=== PATIENT | male | born 1940 | race Caucasian/White ===

== ENCOUNTER 2016-09-07 17:03 | Inpatient (IN) ==
[2016-09-07] MEDS ORDERED: SODIUM CHLORIDE 0.9% 500 ML IV STA (18:15)
[2016-09-07 18:23] LABS: Basophils % 0.3 % (0.0-0.8); Eosinophils # 0.1 10*3/uL (0.0-0.87); Eosinophils % 0.9 % (0.00-10.9); Hematocrit 34.6 VOL% (42.0-52.0); Hemoglobin 10.7 GM/DL (14.0-18.0); Immature Granulocytes % 0.5 %; Immature Granulocytes Absolute 0.05 #; Lymphocytes % 9.6 % (21.2-54.2); Mean Corpuscular HGB Conc 30.9 GM/DL (32-36); Mean Corpuscular Hemoglobin 28 PG (27-34); Mean Corpuscular Volume 90.8 FL (87-102); Mean Platelet Volume 10.9 FL (9.6-12.0); Monocytes # 0.4 10*3/uL (0.11-0.8); Monocytes % 3.4 % (1.7-12.7); Neutrophils # 8.7 10*3/uL (1.4-7.4); Neutrophils % 85.3 % (38.7-73.9); Platelet Count 243 T/CUMM (130-400); Red Blood Count 3.81 MC/CUMM (3.8-5.5); Red Cell Distribution Width 15.2 % (9.3-17.3); White Blood Count 10.2 T/CUMM (4-12)
--- NOTE | 2016-09-07 18:46 | CT Report ---
CT head/brain wo con INDICATION: Altered mental status/confusion The total DLP is 970 mGy*cm. COMPARISON: Noncontrast CT head dated 08/30/2016 Technique: Serial axial tomographic images of the brain were obtained without the use of intravenous contrast. Dose reduction: This CT exam was performed using one or more of the following dose reduction techniques: Automated exposure control, automated adjustment of the mA and/or KV according to patient size, or use of iterative reconstruction technique. Findings: Mild generalized atrophy is noted with mild prominence of the sulci and cortical volume loss. Periventricular white matter hypodensity changes are noted bilaterally which do not demonstrate mass effect and are nonspecific but favored to represent sequela of chronic microvascular ischemia. There is no evidence of vascular territory infarct or acute intracranial hemorrhage. The ruth-white matter differentiation is generally maintained. There is no hydrocephalus. The basilar cisterns are patent. The visualized paranasal sinuses, mastoid air cells and middle ear cavities are predominantly clear. The included orbits and their contents appear within normal limits. The visualized osseous structures and overlying soft tissues of the skull and face demonstrate no acute abnormality. IMPRESSION: No acute intracranial abnormality. Similar mild generalized atrophy and sequela of chronic microvascular ischemia PROCEDURE INTERPRETED AT [facility] DEPARTMENT OF RADIOLOGY Final Report Signed by: Ender Kam
[2016-09-07 18:49] LABS: Alanine Aminotransferase 16 U/L (16-61); Albumin 3.4 G/DL (3.4-5.0); Alkaline Phosphatase 70 U/L (45-117); Aspartate Amino Transferase 28 U/L (0-37); Bilirubin,Total < 0.39 MG/DL (0.2-1.0); Blood Urea Nitrogen 93 MG/DL (7-18); Magnesium 2.5 MG/DL (1.8-2.4); Osmolality,Calculated 288.5 MOS/KG (273-304); Sodium 132 MMOL/L (136-145); Total Protein 7.6 G/DL (6.4-8.3); Troponin I Only < 0.015 NG/ML (0.00-0.045)
[2016-09-07 18:53] LABS: Ammonia 19 UMOL/L (11-32)
[2016-09-07 18:57] LABS: Glucose 34 MG/DL (74-106)
[2016-09-07 18:58] LABS: Potassium 7.4 MMOL/L (3.5-5.1)
[2016-09-07] MEDS ORDERED: DEXTROSE 50% 25 GM/50 ML VIAL IV ONE (19:01)
[2016-09-07] MEDS ORDERED: DEXTROSE 50% 25 GM/50 ML VIAL IV STA (19:01)
[2016-09-07] MEDS ORDERED: CALCIUM CHLORIDE 1,000 MG/10 ML SYRINGE IV STA (19:01)
[2016-09-07] MEDS ORDERED: SODIUM POLYSTYRENE SULFATE 15 GM/60 ML BOTTLE PO STA (19:01)
[2016-09-07] MEDS ORDERED: SODIUM POLYSTYRENE SULFATE 15 GM/60 ML BOTTLE ONE ×2 (19:02→19:03)
[2016-09-07] MEDS ORDERED: CALCIUM CHLORIDE 1,000 MG/10 ML SYRINGE IV ONE (19:02)
[2016-09-07] MEDS ORDERED: SODIUM CHLORIDE 0.9% 1,000 ML IV STA (19:02)
--- NOTE | 2016-09-07 19:04 | XRay Report ---
Exam: XR chest 1V portable Indication: Mental status changes, confusion Comparison study: 08/21/2016 Findings: Cardiomegaly with mild enlarged, similar to prior. The heart, mediastinum and bony structures are stable from prior. Minimal peribronchial thickening is noted within the hilar regions. Minimal density within the left lung base is unchanged from prior. There is similar punctate metallic density within the right mid chest. There is no pneumothorax. Impression: Similar cardiomegaly with probable left basilar atelectasis/trace pleural effusion and mild bronchitis. No definite focal consolidation. PROCEDURE INTERPRETED AT [facility] DEPARTMENT OF RADIOLOGY Final Report Signed by: Ender Kam
--- NOTE | 2016-09-07 19:10 | Emergency Department Note ---
Adrian Heck Manpreet, am scribing for, and in the presence of, Nicolas Calderon MD 18:20. Kvng Heck Charles R, MD, personally performed the services described in this documentation, ascribed by Nilson Campbell in my presence, and it is both accurate and complete 910 . Arrival - Arrival Chief Complaint: Altered Mental Status Stated Complaint: AMS, LOW BLOOD SUGAR ED Nursing Triage Note: PT SENT FROM [facility] IN [place] FOR EVALUATION OF TREMORS AND AMS. ON EMS ARRIVAL GLUCOSE FOUND TO BE 27 MG/DL. 1 AMP D50 GIVEN AND GLUCOSE INCREASED TO 106 MG/DL. PT'S TREMORS STOPPED AND PT IS AT BASELINE MENTAL STATUS, WHICH IS MENTALLY DELAYED. LABS DRAWN TODAY AT THE INTERMEDIATE. Mode of Arrival: Stretcher Source: Patient, Old Records Reviewed Time Seen by Provider: 09/07/16 18:04 - History of Present Illness HPI Narrative: Pt is a 75 y/o male, with PMHx of HTN, IDDM, dyslipidemia, GERD, and dementia, who was sent from [facility] in [place] for evaluation for hypokalemia and AMS. While en route to ED, EMS reported Pts blood sugar to be 27 mg/DL and which was increased with D50 and glucose. Pt does not know his current location, and c /o of vomiting and CP. Pt states he is hungry but does not have Abd pain. No other pains/complaints reported to ED. Onset (ago): hour(s) Consistency: constant Severity: moderate Severity scale (1-10): 4 Allergies/Adverse Reactions: Allergies Allergy/AdvReac Type Severity Reaction Status Date / Time No Known Allergies Allergy Verified 09/07/16 17:30 Home Medications: Home Medications Medication Instructions Recorded Confirmed Type Acetaminophen [Non-Aspirin Extra 1,000 mg PO Q8H PRN 08/16/16 09/07/16 History Strength] Albuterol Neb [Proventil Neb] 2.5 mg RESP TX Q6HR PRN 08/16/16 09/07/16 History Alum/Mag/Simeth Liquid [Mylanta 30 ml PO Q4H PRN 08/16/16 09/07/16 History Liquid] Aspirin EC Tab 81 mg PO 0800 08/16/16 09/07/16 History Gabapentin Cap/Tab [Neurontin 100 mg PO DAILY 08/16/16 09/07/16 History Cap/Tab] Gabapentin Cap/Tab [Neurontin 200 mg PO BEDTIME 08/16/16 09/07/16 History Cap/Tab] Insulin Detemir [Levemir] 20 unit SUBCUT BEDTIME 08/16/16 09/07/16 History Levothyroxine Tab [Synthroid Tab] 50 mcg PO DAILY@0800 08/16/16 09/07/16 History Magnesium Hydroxide Susp [Milk of 30 ml PO DAILY PRN 08/16/16 09/07/16 History Magnesia] Metformin HCl 1,000 mg PO QPM 08/16/16 09/07/16 History Mirtazapine 15 mg PO SUMOTUWETHFR 08/16/16 09/07/16 History Multivitamin with Folic Acid [One 400 mcg PO 0800 08/16/16 09/07/16 History Daily Essential Tablet] Ranitidine Tab [Zantac Tab] 150 mg PO BID 08/16/16 09/07/16 History glipiZIDE [Glipizide] 10 mg PO 0600 08/16/16 09/07/16 History metFORMIN [Glucophage] 1,500 mg PO QAM 08/16/16 09/07/16 History Diltiazem Cd Cap [Cardizem CD] 180 mg PO BID #60 capsule 08/24/16 09/07/16 Rx Ascorbic Acid [Vitamin C Chew Tab] 500 mg PO 0800 09/07/16 09/07/16 History Zinc Sulfate 220 mg PO 0800 09/07/16 09/07/16 History dimenhyDRINATE INJ 50 mg IJ Q4H PRN 09/07/16 09/07/16 History dimenhyDRINATE TAB [Dramamine] 50 mg PO Q4-6H PRN 09/07/16 09/07/16 History Review of System - Review of System 12 point system: reviewed and no additional remarkable complaints except as stated - Review of System Constitutional: Absent: chills, diaphoresis, fever Respiratory: Absent: cough, respiratory distress Gastrointestinal: Present: nausea, vomiting. Absent: abdominal pain, diarrhea Musculoskeletal: Absent: arm pain, back pain, lower back pain, neck pain Neurological: Absent: headache Medical,Surgical,& Family Hx - Medical History Cardio: History of: Cardiac Dysrhythmia (AFIB), Hypertension Neurology: History of: Dementia No history of: Seizures Endocrine: History of: Diabetes Mellitus (IDDM), Dyslipidemia Gastrointestinal: History of: GERD - Surgical History Orthopedic Surgeries: Surgical HX of;: Orthopedic Surgery - Social History Smoking Status: Never smoker Frequency of Alcohol Use: None Type of Drug Use: None Exam Vital Signs: Vital Signs Temperature 96.0 F L 09/07/16 17:03 Pulse Rate 66 09/07/16 17:03 Respiratory Rate 16 09/07/16 17:03 Blood Pressure 104/47 09/07/16 17:03 O2 Sat by Pulse Oximetry 92 L 09/07/16 17:03 - General General appearance: alert - Head Head exam: Present: atraumatic, normocephalic - Eye Eye exam: Present: normal appearance, PERRL, EOMI - ENT ENT exam: Present: mucous membranes dry, TM's normal bilaterally - Neck Neck exam: Present: normal inspection, full ROM, trachea midline. Absent: tenderness - Chest Chest inspection: Present: normal inspection, symmetric chest wall rise - Respiratory Respiratory exam: Present: normal lung sounds bilaterally. Absent: respiratory distress - Cardiovascular Cardiovascular exam: Present: regular rate, normal rhythm, normal heart sounds. Absent: murmur, rubs, gallop - Abdominal Exam Abdominal exam: Present: soft, distention. Absent: tenderness - Extremities Exam Extremities exam: Present: normal inspection, other (+1 Pitting edema) - Back Exam Back exam: Present: normal inspection, full ROM. Absent: tenderness - Neurological Exam Neurological exam: Present: alert, CN II-XII intact. Absent: oriented X3, normal gait - Psychiatric Psychiatric exam: Present: normal affect, normal mood - Skin Skin exam: Present: warm, dry, intact, normal color. Absent: pallor Course - Consultations Consultation #1: Hospitalist will admit patient Time: 19:09 Results - Labs CBC & BMP: 09/07/16 17:57 09/07/16 17:57 Lab Results: I have reviewed the patients labs Labs: Laboratory Tests 09/07/16 17:57 WBC 10.2 RBC 3.81 Hgb 10.7 L Hct 34.6 L MCV 90.8 MCHC 30.9 L RDW 15.2 Neut % (Auto) 85.3 H Lymph % (Auto) 9.6 L Neut # (Auto) 8.7 H Lymph # (Auto) 1.0 L Critical Care Time Critical Care Time: Yes Total Critical Care Time: 60 Disposition Clinical Impression: Altered mental status, Hypoglycemia, Hyperkalemia, Acute renal failure, Dehydration, Debility Case discussed with: patient Disposition: Still a Patient Condition: Guarded Time of Disposition: 19:09
[2016-09-07] MEDS ORDERED: ONDANSETRON 4 MG/2 ML VIAL IV STA (19:16)
[2016-09-07] MEDS ORDERED: ONDANSETRON 4 MG/2 ML VIAL ONE (19:17)
--- NOTE | 2016-09-07 19:38 | EKG Report ---
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
[2016-09-07 19:47] LABS: Apearance,Urine CLEAR (Clear); Bilirubin,Urine Negative (Negative); Blood, Urine Negative (Negative); Glucose,Urine (UA) Negative (Negative); Ketones,Urine Negative (Negative); Nitrite,Urine Negative (Negative); Protein,Urine Negative; Urine Color Yellow (Yellow); Urine Specific Gravity 1.012 (1.001-1.035); Urine Urobilinogen < 2.0 EU/DL (0.2-1.0)
--- NOTE | 2016-09-07 20:05 | Hospitalist History & Physical ---
Assessment and Plan (1) Acute renal failure Status: Acute Assessment and plan: The patient is admitted hospital with profound worsening of chronic kidney disease stage III caused by acute renal failure due to dehydration. The patient will be rehydrated with crystalloid fluid and will recheck kidney function tomorrow morning. The patient has hyperkalemia due to the acute renal failure and has been given a dose of Kayexalate. Will recheck potassium tomorrow. We will hold the patient's antidiabetic medications for now and restart as required once the glucose stabilizes. The patient will have D5 normal saline throughout the night. Current Visit: Yes Qualifiers: Acute renal failure type: with acute tubular necrosis Qualified Code(s): N17.0 - Acute kidney failure with tubular necrosis (2) Altered mental status Status: Acute Current Visit: Yes (3) Hypoglycemia Status: Acute Current Visit: Yes (4) Hyperkalemia Status: Acute Current Visit: Yes (5) Dehydration Status: Acute Current Visit: Yes History of Present Illness Chief complaint: Altered mental status History of present illness: Mr. Aragon is a 75 year old male with history of diabetes mellitus type 2, peripheral vascular disease with arterial insufficiency of the lower extremities. The patient has baseline chronic kidney disease stage III with creatinine 1.6. The patient was noticed to be lethargic at the custodial and was sent to [facility] for further evaluation. The patient is profoundly hypoglycemic and takes long-acting insulin as well as oral antidiabetic medications. The patient states that he has had some diarrhea nausea and vomiting. Serum creatinine is now 6.4 and the patient appears to be dehydrated. The patient's altered mental status improved with dextrose infusion. The patient's altered mental status was moderate to severe, continuous, and improving with dextrose. The patient is now admitted to the hospital for therapy of renal failure and hypoglycemia. Home Medications Medication Instructions Recorded Confirmed Type Acetaminophen [Non-Aspirin Extra 1,000 mg PO Q8H PRN 08/16/16 09/07/16 History Strength] Albuterol Neb [Proventil Neb] 2.5 mg RESP TX Q6HR PRN 08/16/16 09/07/16 History Alum/Mag/Simeth Liquid [Mylanta 30 ml PO Q4H PRN 08/16/16 09/07/16 History Liquid] Aspirin EC Tab 81 mg PO 0800 08/16/16 09/07/16 History Gabapentin Cap/Tab [Neurontin 100 mg PO DAILY 08/16/16 09/07/16 History Cap/Tab] Gabapentin Cap/Tab [Neurontin 200 mg PO BEDTIME 08/16/16 09/07/16 History Cap/Tab] Insulin Detemir [Levemir] 20 unit SUBCUT BEDTIME 08/16/16 09/07/16 History Levothyroxine Tab [Synthroid Tab] 50 mcg PO DAILY@0800 08/16/16 09/07/16 History Magnesium Hydroxide Susp [Milk of 30 ml PO DAILY PRN 08/16/16 09/07/16 History Magnesia] Metformin HCl 1,000 mg PO QPM 08/16/16 09/07/16 History Mirtazapine 15 mg PO SUMOTUWETHFR 08/16/16 09/07/16 History Multivitamin with Folic Acid [One 400 mcg PO 0800 08/16/16 09/07/16 History Daily Essential Tablet] Ranitidine Tab [Zantac Tab] 150 mg PO BID 08/16/16 09/07/16 History glipiZIDE [Glipizide] 10 mg PO 0600 08/16/16 09/07/16 History metFORMIN [Glucophage] 1,500 mg PO QAM 08/16/16 09/07/16 History Diltiazem Cd Cap [Cardizem CD] 180 mg PO BID #60 capsule 08/24/16 09/07/16 Rx Ascorbic Acid [Vitamin C Chew Tab] 500 mg PO 0800 09/07/16 09/07/16 History Zinc Sulfate 220 mg PO 0800 09/07/16 09/07/16 History dimenhyDRINATE INJ 50 mg IJ Q4H PRN 09/07/16 09/07/16 History dimenhyDRINATE TAB [Dramamine] 50 mg PO Q4-6H PRN 09/07/16 09/07/16 History Allergies Allergy/AdvReac Type Severity Reaction Status Date / Time No Known Allergies Allergy Verified 09/07/16 17:30 Medical,Surgical,& Family Hx - Medical History Cardio: History of: Cardiac Dysrhythmia (AFIB), Hypertension Neurology: History of: Dementia No history of: Seizures Endocrine: History of: Diabetes Mellitus (IDDM), Dyslipidemia Gastrointestinal: History of: GERD - Surgical History Orthopedic Surgeries: Surgical HX of;: Orthopedic Surgery - Family History Family History: Reports;: Family Hypertension - Social History Smoking Status: Never smoker Frequency of Alcohol Use: None Type of Drug Use: None Marital Status: Single Lives With:: half-way Functional capacity: wheelchair bound 12 point system: reviewed and no additional remarkable complaints except as stated Exam - Constitutional Exam: Constitutional System: Minimal distress. No tremulousness. Mild diaphoresis which is improved with dextrose Head: Normocephalic, atraumatic. Ears, Nose and Throat System: No evidence of Otitis or Mastoiditis. No epistaxis or discharge Eyes System: Pupils equal, round, and reactive. Extraocular muscles intact. Neck: Supple, without adenopathy, No jugular venous distention. No thyromegaly , neck mass, or prior surgery apparent. Respiratory System: Chest clear to auscultation. Cardiovascular System: Heart with regular rate and rhythm. No murmur. GI System: Abdomen soft, minimal tenderness right lower quadrant. Normo active bowel sounds present. Musculoskeletal System: limbs with no pedal edema. Reduced distal pulses and bilateral feet are bandaged. The patient has had recent bilateral great toe amputations Neurological System: No discernable sensory deficit. No aphasia Psychiatric System: Conversation consistent with moderate dementia. Results - Labs CBC & BMP: 09/07/16 17:57 09/07/16 17:57 Lab Results: I have reviewed the past 24 hour labs
[2016-09-07] MEDS ORDERED: GLUCAGON 1 MG VIAL IM PRN (20:40)
[2016-09-07] MEDS ORDERED: ONDANSETRON 4 MG/2 ML VIAL IV PRN (20:40)
[2016-09-07] MEDS: DEXTROSE 5% NACL 0.9% 1,000 ML IV SCH (21:06)
[2016-09-07] MEDS: INSULIN LISPRO 100 UNIT/ML SUBCUT SCH ×2 (21:12→23:01)
--- NOTE | 2016-09-07 21:21 | XRay Report ---
XR abdomen 2V Clinical Information: Abdominal Pain nausea, vomiting Comparison: None Findings: Bowel gas pattern is nonspecific and within normal limits. No abnormally dilated small bowel loops are identified to suggest obstruction. There is no free air identified. Scattered fecal material is noted throughout colon, which is otherwise nondilated. No abnormal focal soft tissue masses or calcific densities are identified in the abdomen or pelvis. Lung bases appear predominantly clear. There is no acute osseous abnormality. No suspicious osseous lesions are identified. Impression: No acute radiographic abnormality in the abdomen. A mild-moderate degree of fecal stasis/constipation is suspected. PROCEDURE INTERPRETED AT [facility] DEPARTMENT OF RADIOLOGY Final Report Signed by: Ender Kam
[2016-09-07] MEDS: DEXTROSE 50% 25 GM/50 ML VIAL IV PRN (22:48)
[2016-09-08] MEDS: INSULIN LISPRO 100 UNIT/ML SUBCUT SCH ×12 (01:07→22:35)
[2016-09-08] MEDS: DEXTROSE 50% 25 GM/50 ML VIAL IV PRN ×3 (02:23→06:29)
[2016-09-08] MEDS: DEXTROSE 5% NACL 0.9% 1,000 ML IV SCH (04:24)
[2016-09-08 06:43] LABS: Basophils % 0.2 % (0.0-0.8); Eosinophils # 0.2 10*3/uL (0.0-0.87); Eosinophils % 2.2 % (0.00-10.9); Hematocrit 32.8 VOL% (42.0-52.0); Hemoglobin 10.2 GM/DL (14.0-18.0); Immature Granulocytes % 0.4 %; Immature Granulocytes Absolute 0.04 #; Lymphocytes % 10.7 % (21.2-54.2); Mean Corpuscular HGB Conc 31.1 GM/DL (32-36); Mean Corpuscular Hemoglobin 28 PG (27-34); Mean Corpuscular Volume 88.9 FL (87-102); Mean Platelet Volume 11.1 FL (9.6-12.0); Monocytes # 0.5 10*3/uL (0.11-0.8); Monocytes % 5.4 % (1.7-12.7); Neutrophils # 7.7 10*3/uL (1.4-7.4); Neutrophils % 81.1 % (38.7-73.9); Platelet Count 209 T/CUMM (130-400); Red Blood Count 3.69 MC/CUMM (3.8-5.5); Red Cell Distribution Width 15.2 % (9.3-17.3); White Blood Count 9.5 T/CUMM (4-12)
--- NOTE | 2016-09-08 07:11 | EKG Report ---
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
[2016-09-08 07:20] LABS: Blood Urea Nitrogen 90 MG/DL (7-18); Magnesium 2.4 MG/DL (1.8-2.4); Osmolality,Calculated 304.3 MOS/KG (273-304); Sodium 141 MMOL/L (136-145); Troponin I Only < 0.015 NG/ML (0.00-0.045)
[2016-09-08 07:24] LABS: Glucose 33 MG/DL (74-106); Potassium 6.6 MMOL/L (3.5-5.1)
[2016-09-08] MEDS ORDERED: SODIUM CHLORIDE 0.9% 1,000 ML IV SCH (08:00)
--- NOTE | 2016-09-08 08:36 | Ultrasound Report ---
Renal ultrasound Indication: Renal failure Comparison: None available Findings: Kidneys are normal in size. There is simple appearing cyst in the left kidney that measures 2.0 x 1.4 x 1.3 cm. No hydronephrosis or nephrolithiasis is seen. The right renal length is 10.6 cm. The left renal length is 10.9 cm. No free fluid or other abnormality is seen. Impression: Simple appearing left renal cyst. No other evidence of abnormality demonstrated. Ultrasound images stored and captured. PROCEDURE INTERPRETED AT [facility] DEPARTMENT OF RADIOLOGY Final Report Signed by: Dr. Drew Esparza
[2016-09-08] MEDS ORDERED: SODIUM POLYSTYRENE SULFATE 15 GM/60 ML BOTTLE PO STA (09:27)
--- NOTE | 2016-09-08 09:49 | Hospitalist Progress Note ---
Assessment and Plan (1) Atrial fibrillation with rapid ventricular response Status: Acute Current Visit: No (2) Diabetes Status: Acute Current Visit: No (3) Hypoglycemia Status: Acute Current Visit: Yes (4) Hyperkalemia Status: Acute Current Visit: Yes (5) Acute renal failure Status: Acute Current Visit: Yes Qualifiers: Acute renal failure type: with acute tubular necrosis Qualified Code(s): N17.0 - Acute kidney failure with tubular necrosis (6) Dehydration Status: Acute Current Visit: Yes Hospitalist: Subjective Interval history: No acute events overnight. Patient reports that he is doing well, denies pain. He is only oriented to person. Creatinine is slightly better today as is his potassium. But still elevated. Nephrology has been consulted. Of note he was discharged on bactrim last month. FSGs remain low, started on D10 this am. Will continue to monitor. Exam - Constitutional Vitals: Period Temp Pulse Resp BP Sys/Anthony Pulse Ox Last 24 Hr 97.5 F-98.1 F 82-112 18-18 114-141/54-81 93-95 General appearance: normal weight - Head Head exam: Present: normocephalic, atraumatic - Eye Eye exam: Present: EOMI Pupils: Present: SELVIN - ENT ENT exam: Present: normal exam - Neck Neck exam: Present: normal inspection - Respiratory Respiratory exam: Present: clear to auscultation bilaterally. Absent: rhonchi, wheezes - Cardiovascular Cardiovascular exam: Present: regular rate and rhythm - GI/Abdominal GI/Abdominal exam: Present: normal bowel sounds, soft. Absent: tenderness, rebound - Extremities Exam Extremities exam: Present: normal inspection - Back Exam Back exam: Present: normal inspection - Neurological Exam Neurological exam: Present: alert, altered - Psychiatric Psychiatric exam: Present: normal affect, normal mood - Skin Skin exam: Present: warm, intact Results - Labs CBC & BMP: 09/08/16 05:44 09/08/16 05:44 Quality Measures - VTE Contraindication to Pharmacological VTE Prophylaxis: High Risk of Bleeding
[2016-09-08] MEDS: DEXTROSE 10% 1,000 ML IV SCH ×2 (10:21→17:29)
[2016-09-08] MEDS: DILTIAZEM CD 180 MG CAPSULE PO SCH ×2 (10:37→20:36)
[2016-09-08] MEDS: MIRTAZAPINE 15 MG TABLET PO SCH (10:37)
[2016-09-08] MEDS: ASPIRIN EC 81 MG TABLET PO SCH (10:38)
[2016-09-08] MEDS: LEVOTHYROXINE 50 MCG TABLET PO SCH (10:38)
[2016-09-08] MEDS: DEXAMETHASONE 4 MG/1 ML VIAL IV SCH ×3 (10:41→23:50)
[2016-09-08] MEDS ORDERED: ALBUTEROL/IPRATROPIUM 3 ML NEB RESP TX ONE (12:50)
[2016-09-08] MEDS ORDERED: CALCIUM GLUCONATE 1,000 MG in SODIUM CHLORIDE 0.9% 100 ML IV ONE (12:52)
--- NOTE | 2016-09-08 23:33 | Nephrology Consult Note ---
History of Present Illness Chief complaint: ARF History of present illness: Mr. Aragon is a 75 year old male admitted with decreased LOC. He was noted to be significantly hypoglycemic on admission. Chronic renal insufficiency was noted to be significantly worse. He was hyperkalemic on admission. He was recently hospitalized for peripheral vascular disease. At the time of discharge his creatinine was 1.6. He was discharged on Bactrim. He states he has had nausea and vomiting prior to admission Home Medications Medication Instructions Recorded Confirmed Type Acetaminophen [Non-Aspirin Extra 1,000 mg PO Q8H PRN 08/16/16 09/07/16 History Strength] Albuterol Neb [Proventil Neb] 2.5 mg RESP TX Q6HR PRN 08/16/16 09/07/16 History Alum/Mag/Simeth Liquid [Mylanta 30 ml PO Q4H PRN 08/16/16 09/07/16 History Liquid] Aspirin EC Tab 81 mg PO 0800 08/16/16 09/07/16 History Gabapentin Cap/Tab [Neurontin 100 mg PO DAILY 08/16/16 09/07/16 History Cap/Tab] Gabapentin Cap/Tab [Neurontin 200 mg PO BEDTIME 08/16/16 09/07/16 History Cap/Tab] Insulin Detemir [Levemir] 20 unit SUBCUT BEDTIME 08/16/16 09/07/16 History Levothyroxine Tab [Synthroid Tab] 50 mcg PO DAILY@0800 08/16/16 09/07/16 History Magnesium Hydroxide Susp [Milk of 30 ml PO DAILY PRN 08/16/16 09/07/16 History Magnesia] Metformin HCl 1,000 mg PO QPM 08/16/16 09/07/16 History Mirtazapine 15 mg PO SUMOTUWETHFR 08/16/16 09/07/16 History Multivitamin with Folic Acid [One 400 mcg PO 0800 08/16/16 09/07/16 History Daily Essential Tablet] Ranitidine Tab [Zantac Tab] 150 mg PO BID 08/16/16 09/07/16 History glipiZIDE [Glipizide] 10 mg PO 0600 08/16/16 09/07/16 History metFORMIN [Glucophage] 1,500 mg PO QAM 08/16/16 09/07/16 History Diltiazem Cd Cap [Cardizem CD] 180 mg PO BID #60 capsule 08/24/16 09/07/16 Rx Ascorbic Acid [Vitamin C Chew Tab] 500 mg PO 0800 09/07/16 09/07/16 History Sulfameth/Trimeth 800-160 Tab 1 tablet PO DAILY 09/07/16 09/07/16 History [Bactrim DS Tab] Zinc Sulfate 220 mg PO 0800 09/07/16 09/07/16 History dimenhyDRINATE INJ 50 mg IJ Q4H PRN 09/07/16 09/07/16 History dimenhyDRINATE TAB [Dramamine] 50 mg PO Q4-6H PRN 09/07/16 09/07/16 History levoFLOXacin [Levofloxacin] 500 mg PO DAILY 09/07/16 09/07/16 History Allergies Allergy/AdvReac Type Severity Reaction Status Date / Time No Known Allergies Allergy Verified 09/07/16 17:30 Medical,Surgical,& Family Hx - Medical History Cardio: History of: Cardiac Dysrhythmia (AFIB), Hypertension, Valvular Heart Disease Neurology: History of: Dementia No history of: Seizures Endocrine: History of: Diabetes Mellitus (IDDM), Dyslipidemia Gastrointestinal: History of: GERD - Surgical History Orthopedic Surgeries: Surgical HX of;: Orthopedic Surgery - Family History Family History: Reports;: Family Hypertension - Social History Smoking Status: Never smoker Frequency of Alcohol Use: None Type of Drug Use: None Review of Systems 12 point system: reviewed and no additional remarkable complaints except as stated Exam - Vital Signs Vital signs: Period Temp Pulse Resp BP Sys/Anthony Pulse Ox Last 24 Hr 97.5 F-99.0 F 94-114 18-18 94-125/45-81 93-99 Exam: Gen.: Confused ENT: Pupils equal round reactive to light. EOMs intact. Mucous membranes moist. Neck: Supple. No JVD or bruit. Cardiovascular: Regular rate and rhythm. No murmur rub or gallop Lungs: Clear Abdomen: Soft. Nontender. Positive bowel sounds. No organomegaly Extremities: No edema Results - Labs CBC & BMP: 09/08/16 05:44 09/08/16 05:44 Assessment and Plan (1) Chronic kidney disease, stage III (moderate) Status: Acute Assessment and plan: 75 admitted with: * CRF stage III. Baseline creatinine 1.6 * ARF. He was clinically volume depleted on admission. Bactrim likely contributed to renal insufficiency. Agree with IV fluid * Hyperkalemia. Beta agonist has been ordered. Calcium gluconate ordered. * Hypoglycemia. Metformin should not be resumed due to renal insufficiency * Peripheral vascular disease * History of A. fib Current Visit: Yes (2) Acute renal failure Status: Acute Current Visit: Yes Qualifiers: Acute renal failure type: with acute tubular necrosis Qualified Code(s): N17.0 - Acute kidney failure with tubular necrosis (3) Altered mental status Status: Acute Current Visit: Yes (4) Hyperkalemia Status: Acute Current Visit: Yes (5) Hypoglycemia Status: Acute Current Visit: Yes (6) Diabetes Status: Acute Current Visit: No
[2016-09-09] MEDS: INSULIN LISPRO 100 UNIT/ML SUBCUT SCH ×12 (00:51→22:03)
[2016-09-09] MEDS: DEXTROSE 10% 1,000 ML IV SCH (03:11)
[2016-09-09 05:31] LABS: Hematocrit 26.4 VOL% (42.0-52.0); Hemoglobin 8.3 GM/DL (14.0-18.0); Immature Granulocytes % 0.6 %; Immature Granulocytes Absolute 0.04 #; Lymphocytes # 0.4 10*3/uL (1.4-4.0); Lymphocytes % 5.1 % (21.2-54.2); Mean Corpuscular HGB Conc 31.4 GM/DL (32-36); Mean Corpuscular Hemoglobin 28 PG (27-34); Mean Corpuscular Volume 89.8 FL (87-102); Mean Platelet Volume 10.9 FL (9.6-12.0); Monocytes # 0.1 10*3/uL (0.11-0.8); Neutrophils # 6.6 10*3/uL (1.4-7.4); Neutrophils % 93.3 % (38.7-73.9); Platelet Count 155 T/CUMM (130-400); Red Blood Count 2.94 MC/CUMM (3.8-5.5); Red Cell Distribution Width 14.9 % (9.3-17.3); White Blood Count 7.1 T/CUMM (4-12)
[2016-09-09 06:00] LABS: Hypochromasia 1+; Lymphocytes 6 % (20-55); Ovalocytes Slight; Platelet Estimate Normal; Segmented Neutrophils 93 % (50-85); Total Cells Counted 100
[2016-09-09 06:16] LABS: Calcium 8.4 MG/DL (8.5-10.1); Magnesium 2.3 MG/DL (1.8-2.4); Osmolality,Calculated 309.7 MOS/KG (273-304); Potassium 5.9 MMOL/L (3.5-5.1)
[2016-09-09] MEDS ORDERED: DEXTROSE 5% NACL 0.45% 1,000 ML IV SCH (08:30)
--- NOTE | 2016-09-09 08:47 | Nephrology Progress Note ---
Nephrology - PN: Subj Interval history: Mr. Aragon is seen in follow-up of his acute renal impairment. His creatinine continues to slowly improve and his 5.4 today. His potassium is much improved at 5.9. He is cheerful and alert and his chest is clear. Extremities exhibit no edema. We will continue to follow and hopefully is renal function will continue to improve Exam (PN)-Nephrology - Vital Signs Vital signs: Period Temp Pulse Resp BP Sys/Anthony Pulse Ox Last 24 Hr 98.2 F-99.3 F 97-114 18-18 94-110/45-58 95-99 - Lab 09/09/16 05:02 09/09/16 05:02 Most recent lab results Calcium 8.4 MG/DL (8.5-10.1) L 09/09/16 05:02 Magnesium 2.3 MG/DL (1.8-2.4) 09/09/16 05:02
[2016-09-09] MEDS: ASPIRIN EC 81 MG TABLET PO SCH (09:03)
[2016-09-09] MEDS: DEXAMETHASONE 4 MG/1 ML VIAL IV SCH (09:03)
[2016-09-09] MEDS: DILTIAZEM CD 180 MG CAPSULE PO SCH ×2 (09:03→20:17)
[2016-09-09] MEDS: LEVOTHYROXINE 50 MCG TABLET PO SCH (09:03)
--- NOTE | 2016-09-09 09:07 | Hospitalist Progress Note ---
<Carl Diaz - Last Filed: 09/09/16 09:07> Assessment and Plan (1) Chronic kidney disease, stage III (moderate) Status: Acute Assessment and plan: BUN/Creatinine at 94/5.40; noted improvement since admission. Will discontinue Dextrose 10% and change to D5 1/2 NS at same rate. Current Visit: Yes (2) Hyperkalemia Status: Acute Assessment and plan: Potassium 5.9 today down from 6.6 on yesterday; continue IVF as ordered per nephrology recommendations. Current Visit: Yes Hospitalist: Subjective Interval history: Patient seen and evaluated. No significant overninght events. Noted improvement in potassium at 5.9 from 6.6 on yesterday. Creatinine 5.40 from 6.0 on yesterday. Exam - Constitutional Vitals: Period Temp Pulse Resp BP Sys/Anthony Pulse Ox Last 24 Hr 98.2 F-99.3 F 97-114 18-18 94-110/45-58 95-99 General appearance: normal weight, no acute distress - Head Head exam: Present: normal inspection, normocephalic - Eye Eye exam: Present: EOMI, conjunctival injection Pupils: Present: SELVIN, normal accommodation. Absent: constricted - ENT ENT exam: Present: normal exam, normal external ear exam, normal oropharynx - Neck Neck exam: Present: normal inspection. Absent: lymphadenopathy, meningismus, tenderness, thyromegaly - Respiratory Respiratory exam: Present: clear to auscultation bilaterally. Absent: rales, rhonchi, stridor, wheezes - Cardiovascular Cardiovascular exam: Present: regular rate and rhythm. Absent: carotid bruit, diastolic murmur, gallop, JVD, rubs, systolic murmur - GI/Abdominal GI/Abdominal exam: Present: normal bowel sounds, soft. Absent: firm, guarding, tenderness, rebound - Extremities Exam Extremities exam: Present: normal inspection, normal capillary refill, full ROM , edema (trace edema) - Back Exam Back exam: Present: normal inspection - Neurological Exam Neurological exam: Present: alert (pleasantly confused) - Psychiatric Psychiatric exam: Present: normal affect, normal mood - Skin Skin exam: Present: normal color, warm, dry Results - Labs CBC & BMP: 09/09/16 05:02 09/09/16 05:02 Lab Results: I have reviewed the past 24 hour labs Quality Measures - VTE Contraindication to Pharmacological VTE Prophylaxis: High Risk of Bleeding <Eddie Mcconnell - Last Filed: 09/09/16 10:19> Assessment and Plan (1) Atrial fibrillation with rapid ventricular response Status: Acute Current Visit: No (2) Diabetes Status: Acute Current Visit: No (3) Hypoglycemia Status: Acute Current Visit: Yes (4) Hyperkalemia Status: Acute Current Visit: Yes (5) Acute renal failure Status: Acute Current Visit: Yes Qualifiers: Acute renal failure type: with acute tubular necrosis Qualified Code(s): N17.0 - Acute kidney failure with tubular necrosis (6) Dehydration Status: Acute Current Visit: Yes Hospitalist: Subjective Interval history: Patient seen and examined independently of CHANCE Diaz, agree with history, assessment and plan as documented. Nephrology assisting. Creatinine and potassium improving. FSGs are better. Discontinuing D10, starting D5, continue to monitor closely. Exam - Constitutional Vitals: Period Temp Pulse Resp BP Sys/Anthony Pulse Ox Last 24 Hr 97.8 F-99.3 F 96-114 18-20 94-150/45-66 95-99 Results - Labs CBC & BMP: 09/09/16 05:02 09/09/16 05:02
[2016-09-09] MEDS: SODIUM CHLORIDE 0.9% 1,000 ML IV SCH (18:17)
[2016-09-10] MEDS: INSULIN LISPRO 100 UNIT/ML SUBCUT SCH ×11 (00:07→21:49)
[2016-09-10] MEDS: SODIUM CHLORIDE 0.9% 1,000 ML IV SCH ×2 (02:05→13:58)
[2016-09-10 05:30] LABS: Hematocrit 25.5 VOL% (42.0-52.0); Hemoglobin 8.3 GM/DL (14.0-18.0); Immature Granulocytes % 0.7 %; Immature Granulocytes Absolute 0.07 #; Lymphocytes % 9.2 % (21.2-54.2); Mean Corpuscular HGB Conc 32.5 GM/DL (32-36); Mean Corpuscular Hemoglobin 28 PG (27-34); Mean Corpuscular Volume 86.7 FL (87-102); Mean Platelet Volume 11.3 FL (9.6-12.0); Monocytes # 0.7 10*3/uL (0.11-0.8); Monocytes % 6.7 % (1.7-12.7); Neutrophils # 8.7 10*3/uL (1.4-7.4); Neutrophils % 83.4 % (38.7-73.9); Platelet Count 157 T/CUMM (130-400); Red Blood Count 2.94 MC/CUMM (3.8-5.5); Red Cell Distribution Width 14.7 % (9.3-17.3); White Blood Count 10.4 T/CUMM (4-12)
[2016-09-10 05:51] LABS: Alanine Aminotransferase 18 U/L (16-61); Albumin 2.7 G/DL (3.4-5.0); Alkaline Phosphatase 62 U/L (45-117); Aspartate Amino Transferase 19 U/L (0-37); Bilirubin,Total < 0.39 MG/DL (0.2-1.0); Blood Urea Nitrogen 82 MG/DL (7-18); Calcium 8.1 MG/DL (8.5-10.1); Glucose 187 MG/DL (74-106); Magnesium 2.2 MG/DL (1.8-2.4); Osmolality,Calculated 310.3 MOS/KG (273-304); Phosphorous 3.8 MG/DL (2.5-4.9); Potassium 4.9 MMOL/L (3.5-5.1); Sodium 141 MMOL/L (136-145); Total Protein 5.3 G/DL (6.4-8.3)
[2016-09-10] MEDS: ASPIRIN EC 81 MG TABLET PO SCH (08:28)
[2016-09-10] MEDS: LEVOTHYROXINE 50 MCG TABLET PO SCH (08:28)
[2016-09-10] MEDS: MIRTAZAPINE 15 MG TABLET PO SCH (08:28)
[2016-09-10] MEDS: DILTIAZEM CD 180 MG CAPSULE PO SCH ×2 (08:28→19:59)
--- NOTE | 2016-09-10 09:28 | Nephrology Progress Note ---
Nephrology - PN: Subj Interval history: Mr. Aragon is improved. He is breathing without difficulty with does have some end expiratory wheeze. He is drinking fairly well and I think we can slow his IV fluids down to 50 cc an hour. His creatinine is fallen to 4.0. Overall he is improving significantly and is alert and interactive today. Exam (PN)-Nephrology - Vital Signs Vital signs: Period Temp Pulse Resp BP Sys/Anthony Pulse Ox Last 24 Hr 97.9 F-98.8 F 83-112 18-20 93-133/43-69 94-100 - Lab 09/10/16 05:04 09/10/16 05:04 Most recent lab results Calcium 8.1 MG/DL (8.5-10.1) L 09/10/16 05:04 Phosphorus 3.8 MG/DL (2.5-4.9) 09/10/16 05:04 Magnesium 2.2 MG/DL (1.8-2.4) 09/10/16 05:04
--- NOTE | 2016-09-10 10:01 | Hospitalist Progress Note ---
<Carl Diaz - Last Filed: 09/10/16 09:58> Assessment and Plan (1) Chronic kidney disease, stage III (moderate) Status: Acute Assessment and plan: BUN/Creatinine at 94/5.40; noted improvement since admission. Will discontinue Dextrose 10% and change to D5 1/2 NS at same rate. 09/10-IVF discontinued on yesterday due to increase in blood glucose levels; BUN/ Creatinine today at 82/4.0 down from 94/5.40 on yesterday. Current Visit: Yes (2) Hyperkalemia Status: Acute Assessment and plan: Potassium 5.9 today down from 6.6 on yesterday; continue IVF as ordered per nephrology recommendations. 7-Potassium normalized today at 4.9. Will continue to monitor. Current Visit: Yes Hospitalist: Subjective Interval history: Patient seen and examined; no significant overnight events. Potassium normalized to 4.9; BUN at 82; Creatinine at 4.00 down from 94/5.40 on yesterday. Exam - Constitutional Vitals: Period Temp Pulse Resp BP Sys/Anthony Pulse Ox Last 24 Hr 97.9 F-98.8 F 83-112 18-20 93-133/43-69 94-100 General appearance: normal weight, no acute distress - Head Head exam: Present: normal inspection, normocephalic, atraumatic - Eye Eye exam: Present: EOMI. Absent: conjunctival injection, nystagmus Pupils: Present: SELVIN, normal accommodation - ENT ENT exam: Present: normal exam, normal external ear exam, normal oropharynx - Neck Neck exam: Present: normal inspection. Absent: lymphadenopathy, meningismus, tenderness, thyromegaly - Respiratory Respiratory exam: Present: wheezes - Cardiovascular Cardiovascular exam: Present: regular rate and rhythm. Absent: carotid bruit, diastolic murmur, gallop, JVD, rubs, systolic murmur - GI/Abdominal GI/Abdominal exam: Present: normal bowel sounds, soft - Extremities Exam Extremities exam: Present: normal inspection, full ROM, edema (+2 edema to bilateral lower extremeties) - Neurological Exam Neurological exam: Present: alert, altered - Psychiatric Psychiatric exam: Present: normal affect, normal mood - Skin Skin exam: Present: normal color, warm, dry Results - Labs CBC & BMP: 09/10/16 05:04 09/10/16 05:04 Lab Results: I have reviewed the past 24 hour labs Quality Measures - VTE Contraindication to Pharmacological VTE Prophylaxis: High Risk of Bleeding <Eddie Mcconnell - Last Filed: 09/10/16 11:31> Assessment and Plan (1) Atrial fibrillation with rapid ventricular response Status: Acute Current Visit: No (2) Diabetes Status: Acute Current Visit: No (3) Hypoglycemia Status: Acute Current Visit: Yes (4) Hyperkalemia Status: Acute Current Visit: Yes (5) Acute renal failure Status: Acute Current Visit: Yes Qualifiers: Acute renal failure type: with acute tubular necrosis Qualified Code(s): N17.0 - Acute kidney failure with tubular necrosis (6) Dehydration Status: Acute Current Visit: Yes Hospitalist: Subjective Interval history: Patient seen and examined independently of CHANCE Diaz, agree with assessment and plan as documented. Patient pleasant and alert today. Denies any abdominal pain. Creatinine continues to trend down. Potassium is within normal limits today. Nephrology assisting. Glucoses elevated off D5 now, will start low dose Lantus Exam - Constitutional Vitals: Period Temp Pulse Resp BP Sys/Anthony Pulse Ox Last 24 Hr 97.9 F-98.8 F 83-112 18-20 93-133/43-69 94-100 Results - Labs CBC & BMP: 09/10/16 05:04 09/10/16 05:04
[2016-09-10] MEDS: INSULIN GLARGINE 100 UNIT/ML SUBCUT SCH (12:15)
[2016-09-11] MEDS: INSULIN LISPRO 100 UNIT/ML SUBCUT SCH ×13 (00:26→23:29)
[2016-09-11 07:47] LABS: Basophils % 0.2 % (0.0-0.8); Eosinophils # 0.4 10*3/uL (0.0-0.87); Eosinophils % 2.7 % (0.00-10.9); Hematocrit 28.4 VOL% (42.0-52.0); Hemoglobin 9.3 GM/DL (14.0-18.0); Immature Granulocytes % 0.6 %; Immature Granulocytes Absolute 0.08 #; Lymphocytes # 1.2 10*3/uL (1.4-4.0); Lymphocytes % 9.2 % (21.2-54.2); Mean Corpuscular HGB Conc 32.7 GM/DL (32-36); Mean Corpuscular Hemoglobin 28 PG (27-34); Mean Corpuscular Volume 86.9 FL (87-102); Mean Platelet Volume 10.7 FL (9.6-12.0); Monocytes % 7.9 % (1.7-12.7); Neutrophils # 10.4 10*3/uL (1.4-7.4); Neutrophils % 79.4 % (38.7-73.9); Platelet Count 164 T/CUMM (130-400); Red Blood Count 3.27 MC/CUMM (3.8-5.5); Red Cell Distribution Width 14.7 % (9.3-17.3); White Blood Count 13.1 T/CUMM (4-12)
[2016-09-11 08:11] LABS: Calcium 8.6 MG/DL (8.5-10.1); Magnesium 1.9 MG/DL (1.8-2.4); Potassium 4.9 MMOL/L (3.5-5.1)
[2016-09-11] MEDS: DILTIAZEM CD 180 MG CAPSULE PO SCH ×2 (08:53→20:20)
[2016-09-11] MEDS: ASPIRIN EC 81 MG TABLET PO SCH (08:53)
[2016-09-11] MEDS: MIRTAZAPINE 15 MG TABLET PO SCH (08:53)
[2016-09-11] MEDS: LEVOTHYROXINE 50 MCG TABLET PO SCH (08:53)
[2016-09-11] MEDS: INSULIN GLARGINE 100 UNIT/ML SUBCUT SCH (08:54)
--- NOTE | 2016-09-11 09:45 | EKG Report ---
Stationary ECG Study [facility] Test Date: 09/11/2016 9:45:32 AM Pat Name: ANAND AVENDANO Department: Room: 519 Gender: M [employer]: LONG : 1940 Requested by: Eddie Mcconnell Order Number: [id number] Reading MD: GINGER GUTHRIE Intervals [place] Rate: 119 P: 999 MO: 0 QRS: 85 QRSD: 79 T: 51 QT: 247 QTc: 318 Interpretive Statements ATRIAL FIBRILLATION WITH RAPID VENTRICULAR RESPONSE MODERATE ST DEPRESSION Electronically Signed On 09-17-16 22:21:42 CDT by GINGER GUTHRIE [email or web address]
[2016-09-11] MEDS: METOPROLOL TARTRATE 25 MG TABLET PO SCH ×2 (10:37→20:20)
--- NOTE | 2016-09-11 12:21 | Nephrology Progress Note ---
Nephrology - PN: Subj Interval history: No new symptoms today. He denies shortness of breath. Exam (PN)-Nephrology - Vital Signs Vital signs: Period Temp Pulse Resp BP Sys/Anthony Pulse Ox Last 24 Hr 97.5 F-98.4 F 95-124 18-21 128-147/66-94 96-100 Exam: ENT: Normal Cardiovascular: Regular rate and rhythm. No murmur rub or gallop Lungs: Clear Extremities: No edema - Lab 09/11/16 07:12 09/11/16 07:12 Most recent lab results Calcium 8.6 MG/DL (8.5-10.1) 09/11/16 07:12 Phosphorus 3.8 MG/DL (2.5-4.9) 09/10/16 05:04 Magnesium 1.9 MG/DL (1.8-2.4) 09/11/16 07:12 Assessment and Plan (1) Chronic kidney disease, stage III (moderate) Status: Acute Assessment and plan: 75 admitted with: * CRF stage III. Baseline creatinine 1.6 * ARF. Renal function has improved considerably. Continue current treatment. * Hyperkalemia. Resolved * Hypoglycemia. Metformin should not be resumed due to renal insufficiency * Peripheral vascular disease * History of A. fib Current Visit: Yes (2) Acute renal failure Status: Acute Current Visit: Yes Qualifiers: Acute renal failure type: with acute tubular necrosis Qualified Code(s): N17.0 - Acute kidney failure with tubular necrosis (3) Altered mental status Status: Acute Current Visit: Yes (4) Hyperkalemia Status: Acute Current Visit: Yes (5) Hypoglycemia Status: Acute Current Visit: Yes (6) Diabetes Status: Acute Current Visit: No
--- NOTE | 2016-09-11 13:09 | Hospitalist Progress Note ---
Assessment and Plan (1) Atrial fibrillation with rapid ventricular response Status: Chronic Assessment and plan: Rate controlled until today. Continue dilt. Start metoprolol. Current Visit: No (2) Diabetes Status: Chronic Assessment and plan: Hypoglycemic on admission requiring D10 Now improved Lantus 5 started yesterday, increase to 7 today Current Visit: No (3) Hypoglycemia Status: Resolved Current Visit: Yes (4) Hyperkalemia Status: Resolved Current Visit: Yes (5) Acute renal failure Status: Acute Assessment and plan: Nephrology assisting Improving Current Visit: Yes Qualifiers: Acute renal failure type: with acute tubular necrosis Qualified Code(s): N17.0 - Acute kidney failure with tubular necrosis (6) Dehydration Status: Acute Assessment and plan: Improving Current Visit: Yes Hospitalist: Subjective Interval history: No acute events overnight. Patient without complaints today. His creatinine continues to do we. Started back on long acting insulin yesterday. Slight bump in his white count today, monitor. Today with increase in heart rate. He has a history of atrial fibrillation, maxed on dilt. Will start metoprolol. Possible discharge soon. Exam - Constitutional Vitals: Period Temp Pulse Resp BP Sys/Anthony Pulse Ox Last 24 Hr 97.5 F-98.4 F 95-124 18-21 128-147/66-94 96-100 General appearance: normal weight - Head Head exam: Present: normocephalic, atraumatic - Eye Eye exam: Present: EOMI Pupils: Present: SELVIN - ENT ENT exam: Present: normal exam - Neck Neck exam: Present: normal inspection - Respiratory Respiratory exam: Present: clear to auscultation bilaterally. Absent: rhonchi, wheezes - Cardiovascular Cardiovascular exam: Present: regular rate and rhythm - GI/Abdominal GI/Abdominal exam: Present: normal bowel sounds, soft. Absent: tenderness, rebound - Extremities Exam Extremities exam: Present: normal inspection - Back Exam Back exam: Present: normal inspection - Neurological Exam Neurological exam: Present: alert - Psychiatric Psychiatric exam: Present: normal affect, normal mood - Skin Skin exam: Present: warm, intact Results - Labs CBC & BMP: 09/11/16 07:12 09/11/16 07:12 Quality Measures - VTE Contraindication to Pharmacological VTE Prophylaxis: High Risk of Bleeding
[2016-09-11] MEDS ORDERED: INSULIN GLARGINE 100 UNIT/ML SUBCUT SCH (13:12)
[2016-09-11] MEDS: SODIUM CHLORIDE 0.9% 1,000 ML IV SCH (20:51)
[2016-09-12] MEDS: INSULIN LISPRO 100 UNIT/ML SUBCUT SCH ×7 (01:21→14:26)
[2016-09-12] MEDS: SODIUM CHLORIDE 0.9% 1,000 ML IV SCH (04:17)
[2016-09-12 06:19] LABS: Basophils % 0.1 % (0.0-0.8); Eosinophils # 0.4 10*3/uL (0.0-0.87); Eosinophils % 3.1 % (0.00-10.9); Hematocrit 30.4 VOL% (42.0-52.0); Hemoglobin 9.7 GM/DL (14.0-18.0); Immature Granulocytes % 0.5 %; Immature Granulocytes Absolute 0.07 #; Lymphocytes # 1.2 10*3/uL (1.4-4.0); Lymphocytes % 9.4 % (21.2-54.2); Mean Corpuscular HGB Conc 31.9 GM/DL (32-36); Mean Corpuscular Hemoglobin 28 PG (27-34); Mean Corpuscular Volume 87.1 FL (87-102); Mean Platelet Volume 10.5 FL (9.6-12.0); Monocytes # 0.8 10*3/uL (0.11-0.8); Monocytes % 5.8 % (1.7-12.7); Neutrophils # 10.7 10*3/uL (1.4-7.4); Neutrophils % 81.1 % (38.7-73.9); Platelet Count 164 T/CUMM (130-400); Red Blood Count 3.49 MC/CUMM (3.8-5.5); Red Cell Distribution Width 14.8 % (9.3-17.3); White Blood Count 13.2 T/CUMM (4-12)
[2016-09-12 06:43] LABS: Osmolality,Calculated 314.3 MOS/KG (273-304); Potassium 5.1 MMOL/L (3.5-5.1)
[2016-09-12] MEDS: ASPIRIN EC 81 MG TABLET PO SCH (08:14)
[2016-09-12] MEDS: MIRTAZAPINE 15 MG TABLET PO SCH (08:14)
[2016-09-12] MEDS: DILTIAZEM CD 180 MG CAPSULE PO SCH (08:14)
[2016-09-12] MEDS: LEVOTHYROXINE 50 MCG TABLET PO SCH (08:14)
[2016-09-12] MEDS: METOPROLOL TARTRATE 25 MG TABLET PO SCH (08:14)
--- NOTE | 2016-09-12 09:26 | Discharge Summary ---
<Simone Chu - Last Filed: 09/12/16 09:10> Hospital Course - Hospital Course Hospital Course: Mr. Aragon is a 75 year old male who was admitted through the [facility] ED on 2016 for further evaluation of AMS and hyperkalemia. On admission, the patient was found to be profoundly hypoglycemic and in acute on chronic kidney failure with a serum creatinine of 6.4. He was rehydrated with D5 NS, given dextrose infusion and a dose of Kayexalate. Nephrology was consulted, metformin was discontinued due to renal insufficiency. Potassium normalized by 09/09/2016 down to 5.9 and eventually 5.1 at the time of discharge. Creatinine also improved with IV fluid resuscitation, down to 2.10 at the time of discharge. The remainder of his hospital course was uncomplicated, highlighted by management of his chronic conditions and monitoring his renal function. On 09/11, heart rate was noted to be increased. As he was already at the max dose of diltiazem, we added metoprolol 12.5 po bid. The patient has reached maximum benefit from hospitalization at this time as is stable for discharge. Patient will need to follow up with PCP and nephrology as an outpatient within 2 weeks. Appropriate discharge instructions and other orders to follow per addendum by Dr. Griffin. - Time spent with patient Time with patient DS: Greater than 30 minutes Discharge Plan - Discharge Data Disposition: Disch/Xfer to Snf - Discharge Medications New Insulin Glargine [Lantus] 7 unit SUBCUT DAILY #0 unit Metoprolol Tartrate Tab [Lopressor Tab] 12.5 mg PO BID tablet HYDROcodone/ACETAMIN 5-325 [[place] 5-325] 1 tablet PO Q4H PRN #20 tablet PRN Reason: Pain Mild (1-3) Continue Albuterol Neb [Proventil Neb] 2.5 mg RESP TX Q6HR PRN PRN Reason: Shortness Of Breath/Wheezing Acetaminophen [Non-Aspirin Extra Strength] 1,000 mg PO Q8H PRN PRN Reason: Fever, Headache, Mild Pain Alum/Mag/Simeth Liquid [Mylanta Liquid] 30 ml PO Q4H PRN PRN Reason: Indigestion Mirtazapine 15 mg PO SUMOTUWETHFR Multivitamin with Folic Acid [One Daily Essential Tablet] 400 mcg PO 0800 Levothyroxine Tab [Synthroid Tab] 50 mcg PO DAILY@0800 Ranitidine Tab [Zantac Tab] 150 mg PO BID Ascorbic Acid [Vitamin C Chew Tab] 500 mg PO 0800 Zinc Sulfate 220 mg PO 0800 Aspirin EC Tab 81 mg PO 0800 Diltiazem Cd Cap [Cardizem CD] 180 mg PO BID #60 capsule dimenhyDRINATE TAB [Dramamine] 50 mg PO Q4-6H PRN PRN Reason: Nausea/Vomiting Discontinued Gabapentin Cap/Tab [Neurontin Cap/Tab] 200 mg PO BEDTIME Gabapentin Cap/Tab [Neurontin Cap/Tab] 100 mg PO DAILY glipiZIDE [Glipizide] 10 mg PO 0600 Insulin Detemir [Levemir] 20 unit SUBCUT BEDTIME Metformin HCl 1,000 mg PO QPM dimenhyDRINATE INJ 50 mg IJ Q4H PRN PRN Reason: Nausea/Vomiting Sulfameth/Trimeth 800-160 Tab [Bactrim DS Tab] 1 tablet PO DAILY levoFLOXacin [Levofloxacin] 500 mg PO DAILY Magnesium Hydroxide Susp [Milk of Magnesia] 30 ml PO DAILY PRN PRN Reason: Constipation metFORMIN [Glucophage] 1,500 mg PO QAM - Follow Up or Referral - Forms/Instructions Exam - Constitutional Vitals: Period Temp Pulse Resp BP Sys/Anthony Pulse Ox Last 24 Hr 97.0 F-98.3 F 91-111 18-21 143-162/71-81 94-100 Discharge Results Labs on day of discharge: Labs from last 24 hours 09/12/16 09/12/16 09/12/16 07:03 05:56 05:56 WBC 13.2 H RBC 3.49 L Hgb 9.7 L Hct 30.4 L MCV 87.1 MCH 28 MCHC 31.9 L RDW 14.8 Plt Count 164 MPV 10.5 Neut % (Auto) 81.1 H Lymph % (Auto) 9.4 L Todd % (Auto) 5.8 Eos % (Auto) 3.1 Baso % (Auto) 0.1 Neut # (Auto) 10.7 H Lymph # (Auto) 1.2 L Todd # (Auto) 0.8 Eos # (Auto) 0.4 Baso # (Auto) 0.0 Immature Gran % 0.5 Nucleated RBC % 0.0 Immature Gran # 0.07 Nucleated RBCs # 0.00 Sodium 148 H Potassium 5.1 Chloride 118 H Carbon Dioxide 23 Anion Gap 12.1 BUN 62 H Creatinine 2.10 H GFR Calculation 40 BUN/Creatinine Ratio 29.00 H Glucose 154 H POC Glucose 171 H Calculated Osmolality 314.3 H Calcium 9.0 Magnesium 2.0 09/12/16 09/12/16 09/12/16 05:47 04:43 02:49 WBC RBC Hgb Hct MCV MCH MCHC RDW Plt Count MPV Neut % (Auto) Lymph % (Auto) Todd % (Auto) Eos % (Auto) Baso % (Auto) Neut # (Auto) Lymph # (Auto) Todd # (Auto) Eos # (Auto) Baso # (Auto) Immature Gran % Nucleated RBC % Immature Gran # Nucleated RBCs # Sodium Potassium Chloride Carbon Dioxide Anion Gap BUN Creatinine GFR Calculation BUN/Creatinine Ratio Glucose POC Glucose 178 H 169 H 189 H Calculated Osmolality Calcium Magnesium 09/12/16 09/11/16 09/11/16 00:56 23:22 20:35 WBC RBC Hgb Hct MCV MCH MCHC RDW Plt Count MPV Neut % (Auto) Lymph % (Auto) Todd % (Auto) Eos % (Auto) Baso % (Auto) Neut # (Auto) Lymph # (Auto) Todd # (Auto) Eos # (Auto) Baso # (Auto) Immature Gran % Nucleated RBC % Immature Gran # Nucleated RBCs # Sodium Potassium Chloride Carbon Dioxide Anion Gap BUN Creatinine GFR Calculation BUN/Creatinine Ratio Glucose POC Glucose 209 H 267 H 309 H Calculated Osmolality Calcium Magnesium 09/11/16 09/11/16 09/11/16 17:22 15:36 11:49 WBC RBC Hgb Hct MCV MCH MCHC RDW Plt Count MPV Neut % (Auto) Lymph % (Auto) Todd % (Auto) Eos % (Auto) Baso % (Auto) Neut # (Auto) Lymph # (Auto) Todd # (Auto) Eos # (Auto) Baso # (Auto) Immature Gran % Nucleated RBC % Immature Gran # Nucleated RBCs # Sodium Potassium Chloride Carbon Dioxide Anion Gap BUN Creatinine GFR Calculation BUN/Creatinine Ratio Glucose POC Glucose 213 H 210 H 188 H Calculated Osmolality Calcium Magnesium 09/11/16 09/11/16 10:37 06:35 WBC RBC Hgb Hct MCV MCH MCHC RDW Plt Count MPV Neut % (Auto) Lymph % (Auto) Todd % (Auto) Eos % (Auto) Baso % (Auto) Neut # (Auto) Lymph # (Auto) Todd # (Auto) Eos # (Auto) Baso # (Auto) Immature Gran % Nucleated RBC % Immature Gran # Nucleated RBCs # Sodium Potassium Chloride Carbon Dioxide Anion Gap BUN Creatinine GFR Calculation BUN/Creatinine Ratio Glucose POC Glucose 190 H 156 H Calculated Osmolality Calcium Magnesium DS: Provider Date of admission: 09/07/16 19:17 Primary care physician: . No PCP Attending physician on admission: Savanna George MD Consults: 09/07/16 21:28 Consult to [facility], Educator [CONS] Routine Reason for Merchandise Support Associate: Other Consult to Dietitian [CONS] Routine Reason for Dietitian: Other 09/08/16 07:32 Consult to Physician [CONS] Routine Comment: acute renal failure Consulting Provider: José Escobedo Consult to Specialist Group: Nephrology Person Notified: DANIELITO Date Notified: 09/08/16 Time Notified: 09:46 Discharging clinician: Simone CHANEY Expected date of discharge: 09/12/16 <Brooke Griffin - Last Filed: 09/12/16 10:25> Hospital Course - Hospital Course Hospital Course: Patient seen this am. His creatinine has greatly improved to 2.1. His vitals are stable and he was cheerful and in good spirit and back to his baseline mental status.He will be going to the [place] today. Wound care to take care of his LE ulcers and we will remove his Estrada prior to leaving. - Time spent with patient Time with patient DS: Greater than 30 minutes (Time spent : 35mins) Diagnosis - Discharge Diagnosis (1) Atrial fibrillation with rapid ventricular response Status: Chronic (2) Debility Status: Acute (3) Diabetes Status: Chronic (4) Hypoglycemia Status: Resolved (5) Hyperkalemia Status: Resolved (6) Acute renal failure Status: Acute (7) Dehydration Status: Acute (8) Chronic kidney disease, stage III (moderate) Status: Acute Discharge Plan - Discharge Data Condition at Discharge: Stable Discharge Diet: diabetic diet Activity: resume usual activities as tolerated Exam - Constitutional General appearance: no acute distress - Head Head exam: Present: normal inspection - Respiratory Respiratory exam: Present: clear to auscultation bilaterally - Cardiovascular Cardiovascular exam: Present: other (s1 and s2) - GI/Abdominal GI/Abdominal exam: Present: normal bowel sounds - Extremities Exam Extremities exam: Present: other (Bilateral LE ulcers bandaged, dressings look clean)
[2016-09-12 11:22] VITALS: BP 149/67
--- NOTE | 2016-09-12 23:03 | Nephrology Progress Note ---
Nephrology - PN: Subj Interval history: No complaints today Exam (PN)-Nephrology - Vital Signs Vital signs: Period Temp Pulse Resp BP Sys/Anthony Pulse Ox Last 24 Hr 97.0 F-98.1 F 81-100 18-20 143-162/67-81 94-96 Exam: ENT: Normal Cardiovascular: Regular rate and rhythm. No murmur rub or gallop Lungs: Clear Extremities: No edema - Lab 09/12/16 05:56 09/12/16 05:56 Most recent lab results Calcium 9.0 MG/DL (8.5-10.1) 09/12/16 05:56 Phosphorus 3.8 MG/DL (2.5-4.9) 09/10/16 05:04 Magnesium 2.0 MG/DL (1.8-2.4) 09/12/16 05:56 Assessment and Plan (1) Chronic kidney disease, stage III (moderate) Status: Acute Assessment and plan: 75 admitted with: * CRF stage III. Baseline creatinine 1.6 * ARF. Renal function has improved considerably. Continue current treatment. * Hyperkalemia. Resolved * Hypoglycemia. Metformin should not be resumed due to renal insufficiency * Peripheral vascular disease * History of A. fib (2) Acute renal failure Status: Acute Qualifiers: Acute renal failure type: with acute tubular necrosis Qualified Code(s): N17.0 - Acute kidney failure with tubular necrosis (3) Altered mental status Status: Acute (4) Hyperkalemia Status: Resolved (5) Hypoglycemia Status: Resolved (6) Diabetes Status: Chronic Specialty Discharge - Follow Up or Referrals Follow up with: José Escobedo MD [Physician] - (Follow up as needed)
--- NOTE | 2016-09-15 09:51 | Physician Query Form ---
CLICK EDIT DOCUMENT TO SELECT QUERY ANSWER --> OK --> SIGN Terri Sosa RN Clinical Coffee Break Attendant W) [phone] (f) [phone] [email or web address] PROVIDERS: Make your selection(s) from the choices in EACH section by typing an "x" and enter comments in the comment section. Please use your independent medical judgment in providing your response. This request does not imply that any particular answer is desired or expected. CLINICAL INDICATORS: (Providers should not edit this section) Based on documentation of "Acute altered mental status" "Acute renal failure with ATN" "EMS reported blood sugar was found to be 27mg/dl." "Acute hypoglycemia" "Hyperkalemia" "He was rehydrated with D5 NS, given dextrose infusion and a dose of Kayexalate" ACUITY: (x ) Acute ( ) Acute on Chronic ( ) Chronic ( ) Clinically unable to determine NATURE: x( ) Delirium due to general medical condition ( ) Dementia ( ) Encephalopathy ( ) Unconscious ( ) Transient level of awareness ( ) Comatose ( ) Locked-in State ( ) Persistent Vegetative State ( ) Other, please specify: ( ) Clinically unable to determine Please indicate the underlying cause of the altered mental status (CHECK ALL THAT APPLY): ( ) Baseline dementia ( ) Alzheimer's disease ( ) Parkinson's disease ( ) Lewy body dementia ( ) Acute stroke ( ) Late effect of stroke ( ) Reactive (from emotional stress, psychological trauma) ( ) Due to narcotics/other drugs ( ) Post procedural delirium ( ) Transient ischemic attack ( ) Generalized cerebral edema ( ) Normal pressure hydrocephalus ( ) Psychiatric illness ( ) Other, please specify: (x ) Clinically unable to determine Please indicate if there is an infection, sepsis, dehydration or specific organ failure that is causing the dementia. Be specific with clarifying the relationship between that process and the mental status change. COMMENTS: Use of terms such as suspected, likely, or probable (associated with a specific diagnosis that is being evaluated, monitored, or treated as if it exists) are acceptable and can be restated in the discharge summary if not ruled out. MTDD
== END 2016-09-12 15:00 | DRG 683 ==
LOC: EDUNIT# → N.ED 17:03 → SUATTDRO 19:17 → N.EDINP 19:17 → N.5E 20:15
PROVIDERS: ADMIT Emergency Medicine; ATTEND Internal Medicine